=== PATIENT | female | born 1995 | race Caucasian/White ===

== ENCOUNTER 2022-08-17 18:25 | Observation (INO) | payer BC, SELFPAY ==
[2022-08-17 18:25] VITALS: BMI 20.9
[2022-08-17 18:55] VITALS: BP 104/69; PULSE 81; PULSE 85; O2SAT 100
[2022-08-17 19:00] VITALS: BP 105/67; PULSE 80; PULSE 86; O2SAT 100
--- NOTE | 2022-08-17 19:21 | PC.NURSE ---
1917: Dr. Rosa notified of patient status, instructed to educate patient on proper food and water intake and discharge patient.
--- NOTE | 2022-08-17 19:22 | PC.NURSE ---
1825: pt presents to L&D with complaints of having a low blood pressure when she checked it at home. States she usually runs 90s/60s but had a one time check of 82 as a systolic number. Stated her next checks were back up in the 90's. States she had vomiting on 08/15/22 and 08/16/22 but has not had any vomiting today. States she just feels overall weak. States she has not drank much water today and of patient states she does not eat much. Positive movement, doppled FHT 130's. Denies contractions, leaking of fluid, vaginal bleeding, or having any other complaints or concerns. Educated patient on importance of having a proper nutrition during .
--- NOTE | 2022-08-17 19:26 | OBADM ---
This patient, Wood Jaquez, admitted to the OB room [facility] for observation. Patient/family oriented to hospital policies and general routines including ID bracelet, bed and alarms, visiting hours, pain management, procedures, bathroom and other care routines, personal items, smoking policy, room service/diet, and visiting hours. Patient/Family are encouraged to report perceived risks to care and to ask questions if they do not understand what they are told or what they should do.
--- NOTE | 2022-09-14 22:34 | PM.OBTRLD ---
OB - Triage/Final Diagnosis Visit Information Comments/Additional reasons for admission: I have assessed the risk for this patient, Wood Jaquez, and determined that she would benefit from observation care. Final Diagnosis (1) Hypotension: Code(s): I95.9 - Hypotension, unspecified Status: Acute
== END 2022-08-17 19:45 | disposition home or self-care (01) ==
PROVIDERS: Admitting Provider Obstetrics & Gynecology; Visit Provider Obstetrics & Gynecology
DX: O99.891 Other specified diseases and conditions complicating pregnancy (principal); R03.1 Nonspecific low blood-pressure reading; O21.0 Mild hyperemesis gravidarum; Z3A.00 Weeks of gestation of pregnancy not specified
CPT/HCPCS: G0378; G0379

== ENCOUNTER 2022-10-27 03:30 | Observation (INO) | payer BC, SELFPAY ==
--- NOTE | ~2022-10-27 | US_ITS ---
Pelvic ultrasound. Clinical History: Third trimester . Evaluate placenta and TIFFANIE. Vaginal bleeding. Current [facility] MANDEEP is 12/28/2022. Technique: Realtime transabdominal scanning of the pelvis was performed. Color flow Doppler and Doppl er spectral analysis were performed. Findings: The uterus is anteverted, and contains an intrauterine gestation. heart rate is 138 b pm. Placenta anteriorly located. Several small placental lakes noted, but no other significant placen yosvany abnormality. TIFFANIE is 13.. Neither ovary seen. No adnexal mass seen. There is no evidence of free fluid in the cul de sac. Impression: TIFFANIE is 13. Anterior placenta. heart rate is 138 bpm. Reviewed, dictated and finalized at location . [facility] [employer] Impression: TIFFANIE is 13. Anterior placenta. heart rate is 138 bpm.
--- NOTE | 2022-10-27 03:30 | OBADM ---
This patient, Wood Velasquez, admitted to the OB room [facility] for observation. Patient/family oriented to hospital policies and general routines including ID bracelet, bed and alarms, visiting hours, pain management, procedures, bathroom and other care routines, personal items, smoking policy, room service/diet, and visiting hours. Patient/Family are encouraged to report perceived risks to care and to ask questions if they do not understand what they are told or what they should do.
[2022-10-27 03:45] VITALS: TEMP 36.7
[2022-10-27 04:03] VITALS: BP 126/81; PULSE 84
[2022-10-27 04:30] VITALS: BP 122/89; PULSE 85
[2022-10-27 04:55] LABS: Basophils Percent Auto 0.4 % (0.2-1.2); Eosinophils Absolute Auto 0.1 K/mm3 (0-0.3); Eosinophils Percent Auto 0.8 % (0-4.4); Hematocrit 27.1 % (37.0-47.0); Hemoglobin 8.9 g/dL (12.0-15.0); Immature Granulocyte Absolute 0.06 K/mm3 (0.00-0.031); Immature Granulocyte Percent A 0.6 % (0-0.5); Lymphocytes Absolute Auto 2.89 K/mm3 (0.9-3.2); Lymphocytes Percent Auto 27.2 % (18.3-44.2); Mean Corpuscular HGB Conc 32.8 g/dl (32-36); Mean Corpuscular Volume 94.4 fl (80-100); Mean Platelet Volume 10.2 fl (7.4-10.4); Monocytes Absolute Auto 0.6 K/mm3 (0.1-0.6); Monocytes Percent Auto 5.3 % (2.6-8.5); Neutrophils Percent Auto 65.7 % (45.5-73.1); Platelet Count Result 186 k/mm3 (150-375); Red Blood Count 2.87 M/mm3 (4.2-5.4); Red Cell Distribution Width 12.1 % (11.5-14.5); White Blood Count 10.6 K/mm3 (4.5-10.0)
[2022-10-27 09:07] VITALS: BP 121/81; PULSE 89; TEMP 36.8
--- NOTE | 2022-10-27 10:17 | PC.NURSE ---
1015: Dr. Rosa returned phone call. Notified of TIFFANIE and status. Continue to monitor.
[2022-10-27] MEDS: ACETAMINOPHEN 500 MG TABLET 1000 MG PO (10:20)
[2022-10-27 14:34] VITALS: BP 112/64; PULSE 90; TEMP 36.8
--- NOTE | 2022-11-11 20:12 | PM.OBTRLD ---
OB - Triage/Final Diagnosis Visit Information Comments/Additional reasons for admission: I have assessed the risk for this patient, Wood Velasquez, and determined that she would benefit from observation care. Evaluation Laboratory results: Laboratory Tests 10/27/22 04:49 WBC 10.6 H RBC 2.87 L Hgb 8.9 L Hct 27.1 L MCV 94.4 MCH 31.0 MCHC 32.8 RDW 12.1 Plt Count 186 MPV 10.2 Immature Gran % (Auto) 0.6 H Neut % (Auto) 65.7 Lymph % (Auto) 27.2 [place] % (Auto) 5.3 Eos % (Auto) 0.8 Baso % (Auto) 0.4 Lymph # (Auto) 2.89 [place] # (Auto) 0.6 Eos # (Auto) 0.1 Baso # (Auto) 0.0 Abs Immat Gran (auto) 0.06 H Absolute Neuts (auto) 7.0 H Absolute Nucleated RBC 0.0 Nucleated RBC % 0.0 Final Diagnosis (1) Vaginal bleeding: Code(s): N93.9 - Abnormal uterine and vaginal bleeding, unspecified Status: Acute
== END 2022-10-27 17:42 | disposition home or self-care (01) ==
PROVIDERS: Advanced Practice Midwife; Admitting Provider Obstetrics & Gynecology; Visit Provider Obstetrics & Gynecology
DX: O26.893 Other specified pregnancy related conditions, third trimester (principal); N93.9 Abnormal uterine and vaginal bleeding, unspecified; Z3A.31 31 weeks gestation of pregnancy
CPT/HCPCS: 36415; 76815; 85025; A9270; G0378; G0379